=== PATIENT | male | born 1980 | race Caucasian/White ===

== ENCOUNTER 2017-06-10 22:33 | Emergency (ER) | payer OTHER ==
[~2017-06-10] VITALS: Ht 180.3 cm; Wt 135.4 kg
[~2017-06-10 22:33] MED LIST: CIPR-255 PO; LISI-787 PO
[2017-06-10 22:47] VITALS: TEMP 36.9; Ht 180.3 cm; Wt 135.4 kg
[2017-06-10] MEDS ORDERED: ONDANSETRON INJ 2 MG/ML 2 ML VIAL IV STA (23:36)
[2017-06-10] MEDS ORDERED: SODIUM CHLORIDE 0.9% 1000ML 1,000 ML IV STA (23:36)
[2017-06-10] MEDS ORDERED: SODIUM CHLORIDE 0.9% 500ML 500 ML IV STA (23:36)
[2017-06-10] MEDS ORDERED: MoRPHine SULFATE 10 MG/ML CARP/VIAL IV STA (23:36)
--- NOTE | 2017-06-10 23:59 | EMERGENCY ROOM VISIT NOTE ---
History Report prepared by Mariaelena: Edis Bennett Under the Supervision of: Dr. Irlanda Caro M.D. First contact with patient: 23:29 Chief Complaint: GROIN PAIN Stated Complaint: LEFT GROIN PAIN, LEFT LOWER BACK PAIN History of Present Illness The patient is a 36 year old male who presents to the Emergency Room with complaints of constant, left testicular pain beginning yesterday. The patient states he has a history of a vasectomy two year ago, and this is the third episode since his procedure. He reports the first time it was in his right testicle, and the last time was in his left testicle. The patient notes it feels like his left testicle is more swollen than his right. He states his symptoms are identical to before, and each time epididymitis was ruled out. The patient's records show the previous ultrasounds were negative for swelling. He reports his discomfort is alleviated after 2-3 days of antibiotics. The patient notes he was cutting fire wood and loading it into his truck yesterday just before his symptoms started. He states he took 800mg of ibuprofen, and it slightly decreased his discomfort. The patient reports he woke up this morning, and his symptoms worsening. He notes he took 600mg of ibuprofen one hour ago. The patient states his pain 'shoots' into his low back. Source of History: patient Onset: yesterday Position: other (left testicle) Timing: constant Modifying Factors (Relieving): ibuprofen, other (antibiotics) Associated Symptoms: + back pain (lower) Review of Systems See HPI for pertinent positives & negatives. A total of 10 systems reviewed and were otherwise negative. Past Medical & Surgical Medical Problems: (1) HTN (hypertension) Surgical Problems: (1) S/P appendectomy Family History Diabetes mellitus Heart disease Hypertension Social History Smoking Status: Current Every Day Smoker Alcohol Use: occasionally Drug Use: none Housing Status: lives with family Occupation Status: employed Current/Historical Medications Scheduled Doxycycline Monohydrate (Monodox), 100 MG PO BID Lisinopril/Hctz (Zestoretic 20MG/12.5MG), 1 TAB PO DAILY Allergies Coded Allergies: No Known Allergies (Unverified , 06/10/17) Physical Exam Vital Signs Date Time Temp Pulse Resp B/P (MAP) Pulse Ox O2 Delivery O2 Flow Rate FiO2 06/11/17 02:52 62 18 124/58 95 06/11/17 01:36 60 18 119/51 94 Room Air 06/10/17 22:47 36.9 79 16 150/91 96 Room Air Physical Exam Vital signs reviewed. General: Well-appearing 36 year old male, in no significant distress. HEENT: No scleral icterus, PERRLA, neck supple. Atraumatic. Cardiovascular: Regular rate and rhythm, no extra sounds. Pulmonary: Clear to auscultation bilaterally, normal work of breathing. Abdomen: Soft, nontender, nondistended, positive bowel sounds. Musculoskeletal: Atraumatic, no peripheral edema. (performed in the presence of a male microstrategy architect developer): Normal, circumcised male genitals. No appreciable inguinal hernia. Significant tenderness upon palpation to the left testicle with no significant swelling or tenderness of the epididymis. Neurologic: Patient awake alert and oriented x 3 Skin: Warm, dry, no rash Medical Decision & Procedures ER Provider Diagnostic Interpretation: Radiology results as stated below per my review and radiologist interpretation: US SCROTAL: No evidence of torsion or orchitis. Increased heterogeneity and vascularity of the left epididymis concerning for epididymitis. Small epididymal cysts. Small bilateral hydroceles. Left varicocele. Radiologist: Annalise Tang MD Study ready at 0117 and initial results transmitted at 0204. Laboratory Results 06/10/17 23:55 Red Blood Count 5.05, Mean Corpuscular Volume 86.3, Mean Corpuscular Hemoglobin 29.1, Mean Corpuscular Hemoglobin Concent 33.7, Mean Platelet Volume 10.5, Neutrophils (%) (Auto) 48.1, Lymphocytes (%) (Auto) 39.6, Monocytes (%) (Auto) 7.5, Eosinophils (%) (Auto) 3.7, Basophils (%) (Auto) 0.7, Neutrophils # (Auto) 4.50, Lymphocytes # (Auto) 3.71, Monocytes # (Auto) 0.70, Eosinophils # (Auto) 0.35, Basophils # (Auto) 0.07 06/10/17 23:55 06/11/17 01:27 Test 06/10/17 22:50 06/10/17 23:55 06/11/17 01:27 Urine Color YELLOW Urine Appearance CLEAR (CLEAR) Urine pH 5.0 (4.5-7.5) Urine Specific [place] 1.021 (1.000-1.030) Urine Protein NEG (NEG) Urine Glucose (UA) NEG (NEG) Urine Ketones NEG (NEG) Urine Occult Blood NEG (NEG) Urine Nitrite NEG (NEG) Urine Bilirubin NEG (NEG) Urine Urobilinogen NEG (NEG) Urine Leukocyte Esterase NEG (NEG) White Blood Count 9.37 K/uL (4.8-10.8) Red Blood Count 5.05 M/uL (4.7-6.1) Hemoglobin 14.7 g/dL (14.0-18.0) Hematocrit 43.6 % (42-52) Mean Corpuscular Volume 86.3 fL (80-100) Mean Corpuscular Hemoglobin 29.1 pg (25-34) Mean Corpuscular Hemoglobin Concent 33.7 g/dl (32-36) Platelet Count 193 K/uL (130-400) Mean Platelet Volume 10.5 fL (7.4-10.4) Neutrophils (%) (Auto) 48.1 % Lymphocytes (%) (Auto) 39.6 % Monocytes (%) (Auto) 7.5 % Eosinophils (%) (Auto) 3.7 % Basophils (%) (Auto) 0.7 % Neutrophils # (Auto) 4.50 K/uL (1.4-6.5) Lymphocytes # (Auto) 3.71 K/uL (1.2-3.4) Monocytes # (Auto) 0.70 K/uL (0.11-0.59) Eosinophils # (Auto) 0.35 K/uL (0-0.5) Basophils # (Auto) 0.07 K/uL (0-0.2) RDW Standard Deviation 40.9 fL (36.4-46.3) RDW Coefficient of Variation 13.0 % (11.5-14.5) Immature Granulocyte % (Auto) 0.4 % Immature Granulocyte # (Auto) 0.04 K/uL (0.00-0.02) Anion Gap 5.0 mmol/L (3-11) Est Creatinine Clear Calc Drug Dose 154.3 ml/min Estimated GFR () 122.0 Estimated GFR (Non- 105.2 BUN/Creatinine Ratio 10.8 (10-20) Calcium Level 8.7 mg/dl (8.5-10.1) Total Bilirubin 0.4 mg/dl (0.2-1) Alanine Aminotransferase (ALT/SGPT) 52 U/L (12-78) Alkaline Phosphatase 92 U/L (45-117) Total Protein 7.1 gm/dl (6.4-8.2) Albumin 3.6 gm/dl (3.4-5.0) Direct Bilirubin 0.1 mg/dl (0-0.2) Aspartate Amino Transf (AST/SGOT) 22 U/L (15-37) Laboratory results per my review. Medications Administered Medications (Trade) Dose Ordered Sig/Mena Route Start Time Stop Time Status Last Admin Dose Admin Morphine Sulfate (MoRPHine SULFATE INJ) 6 mg NOW STAT IV 06/10/17 23:36 06/10/17 23:39 DC 06/10/17 23:58 6 MG Ondansetron HCl (Zofran Inj) 4 mg NOW STAT IV 06/10/17 23:36 06/10/17 23:39 DC 06/10/17 23:58 4 MG Sodium Chloride 500 ml @ 999 mls/hr Q31M STAT IV 06/10/17 23:36 06/11/17 00:06 DC 06/10/17 23:58 999 MLS/HR Sodium Chloride 1,000 ml @ 150 mls/hr Q6H40M STAT IV 06/10/17 23:36 06/11/17 03:06 DC 06/10/17 23:58 150 MLS/HR Morphine Sulfate (MoRPHine SULFATE INJ) 4 mg NOW STAT IV 06/11/17 00:18 06/11/17 00:19 DC 06/11/17 00:30 4 MG Morphine Sulfate (MoRPHine SULFATE INJ) 4 mg NOW STAT IV 06/11/17 01:24 06/11/17 01:25 DC 06/11/17 01:33 4 MG Doxycycline Hyclate (Vibramycin Cap) 100 mg NOW STAT PO 06/11/17 02:33 06/11/17 02:35 DC 06/11/17 02:43 100 MG Ceftriaxone Sodium (Rocephin Im) 997.5 mg STK-MED ONCE IM 06/11/17 02:38 06/11/17 02:39 DC 06/11/17 02:44 250 MG ED Course 2322: Past medical records reviewed. The patient was evaluated in room C11B. A complete history and physical examination was performed. 2336: Ordered Sodium Chloride 1000 ml @ 150 mls/hr IV, Sodium Chloride 500 ml @ 999 mls/hr IV, Ondansetron HCl 4mg IV, Morphine Sulfate 6mg IV 0018: Ordered Morphine Sulfate 4mg IV 0124: Ordered Morphine Sulfate 4mg IV 0233: Ordered Vibramycin Cap 100mg PO 0238: Ordered Rocephin Im 997.5 mg IM - only 250mg was administered. 0241: Upon reevaluation, the patient appeared to have improvement of his symptoms. I discussed findings with him. He verbalized agreement of the treatment plan. The patient was discharged home. Medical Decision Differential diagnosis: Etiologies such as torsion, mass, infection, hernia, hydrocele, epididymitis, trauma, intra-abdominal process, as well as others were entertained. This patient was evaluated and appeared to be in some discomfort. IV access was obtained and laboratory work was drawn. The patient was medicated with several doses of IV morphine for pain, particularly after the ultrasound. Patient has exquisite tenderness to the left testes on exam however there is no swelling or erythema appreciated. Urinalysis was obtained and is clear. There is no evidence of blood or infection. There is no evidence of torsion on ultrasound. Patient does have findings consistent with epididymitis on the left. The patient has had this several times over last 2 years. He was medicated with 250 mg of IM ceftriaxone and placed on doxycycline 100 mg twice daily for 10 days. The patient will follow-up with his physician as well as urology. He will return to the ER for worsening of symptoms or any medical concerns. Impression Primary Impression: Epididymitis Scribe Attestation The scribe's documentation has been prepared under my direction and personally reviewed by me in its entirety. I confirm that the note above accurately reflects all work, treatment, procedures, and medical decision making performed by me. Departure Information Dispostion Home / Self-Care Prescriptions Doxycycline Monohydrate (Monodox) 100 Mg Cap 100 MG PO BID for 10 Days, #20 CAP Prov: Irlanda Caro M.D. 06/11/17 Referrals Elisha Gill D.O. (PCP) Forms HOME CARE DOCUMENTATION FORM, IMPORTANT VISIT INFORMATION, WORK / SCHOOL INSTRUCTIONS Patient Instructions My [facility] Additional Instructions Diagnosis: Epididymitis You were given ceftriaxone 250 mg IM in the ED Doxycycline 100 mg twice daily for 10 days. Follow up with urology, Dr Urena, in the next 1-2 weeks. See your PCP in follow up. Return to the ED for worsening of symptoms or any medical concerns.
[2017-06-11 00:06] LABS: BASO % 0.7 %; BASO ABS # 0.07 K/uL (0-0.2); COMPLETE YES; EOS % 3.7 %; HEMATOCRIT 43.6 % (42-52); IG% 0.4 %; LYMPH % 39.6 %; LYMPH ABS # 3.71 K/uL (1.2-3.4); MEAN CELL VOLUME 86.3 fL (80-100); MEAN CORPUSCULAR HEMOGLOBIN 29.1 pg (25-34); MEAN CORPUSCULAR HGB CONC 33.7 g/dl (32-36); MEAN PLATELET VOLUME 10.5 fL (7.4-10.4); MONO % 7.5 %; NEUT % 48.1 %; PLATELET COUNT 193 K/uL (130-400); RED BLOOD COUNT 5.05 M/uL (4.7-6.1); WHITE BLOOD COUNT 9.37 K/uL (4.8-10.8)
[2017-06-11] MEDS ORDERED: MoRPHine SULFATE 4 MG/ML 1 ML CARP\\VIAL IV STA ×2 (00:18→01:24)
[2017-06-11 00:23] LABS: URINE APPEARANCE CLEAR (CLEAR); URINE BILIRUBIN NEG (NEG); URINE COLOR YELLOW; URINE NITRITE NEG (NEG); URINE SPECIFIC GRAVITY 1.021 (1.000-1.030); UROBILINOGEN NEG (NEG); ZZUR CULT IF INDIC CLEAN CATCH NO
[2017-06-11 00:30] LABS: MANUAL MICROSCOPIC REQUIRED? NO; REVIEW REQ? NO
[2017-06-11 00:39] LABS: ALKALINE PHOSPHATASE 92 U/L (45-117); ALT/SGPT 52 U/L (12-78); BLOOD UREA NITROGEN 10 mg/dl (7-18); BUN/CREATININE RATIO 10.8 (10-20); CALCIUM 8.7 mg/dl (8.5-10.1); CARBON DIOXIDE 27 mmol/L (21-32); CHLORIDE 111 mmol/L (98-107); CREATININE 0.93 mg/dl (0.60-1.40); GLUCOSE 75 mg/dl (70-99)
[2017-06-11 00:47] LABS: SODIUM 143 mmol/L (136-145)
[2017-06-11] MEDS ORDERED: DOXY100C76 PO (02:32)
[2017-06-11] MEDS ORDERED: DOXYCYCLINE HYCLATE 100 MG CAP PO STA (02:33)
[2017-06-11] MEDS ORDERED: CEFTRIAXONE SOD 350MG/ML 1 GM VIAL IM ONE (02:38)
[2017-06-11] MEDS ORDERED: CEFTRIAXONE SOD INJ 250 MG/ML VIAL IM ONE (02:45)
[2017-06-11 02:52] VITALS: BP 124/58; PULSE 62; O2SAT 95
--- NOTE | 2017-06-11 07:10 | DIAGNOSTIC IMAGING REPORT ---
SCROTAL ULTRASOUND CLINICAL HISTORY: Left testicular pain and tenderness. COMPARISON STUDY: Scrotal ultrasound June 18, 2015. TECHNIQUE: Grayscale and color and duplex Doppler sonography of the scrotum was performed. FINDINGS: The right testis measures 5 x 2.1 x 3.2 cm left measures 4.5 x 2.6 x 3.7 cm. There is no testicular mass. Color flow within each testis is symmetric. There are small bilateral hydroceles. There is a small left varicocele. There is slight heterogeneity and increased vascularity of the left epididymis which may reflect left-sided epididymitis. IMPRESSION: 1. Normal sonographic appearance of the testes. No evidence of testicular torsion. 2. Slight heterogeneity of the left epididymis which may reflect mild epididymitis. 3. Small left varicocele. Electronically signed by: Jorge Ruiz M.D. 06/11/2017 7:09 AM Dictated Date/Time: 06/11/2017 7:03 AM
== END 2017-06-11 02:50 | disposition home or self-care (01) ==
LOC: C.EDB 22:34 → C.EDC 06-11 02:50
DX: N45.1 Epididymitis (principal); I10 Essential (primary) hypertension; F17.200 Nicotine dependence, unspecified, uncomplicated; Z98.890 Other specified postprocedural states; Z79.899 Other long term (current) drug therapy; Z83.3 Family history of diabetes mellitus; Z82.49 Family history of ischemic heart disease and other diseases of the circulatory system